=== PATIENT | female | born 1940 | race Caucasian/White ===

== ENCOUNTER 2025-02-07 06:32 | Day surgery (SDC) | payer MEDICARE ==
[2025-02-05 09:39] VITALS: BMI 20.5
[~2025-02-07 06:32] MED LIST: LACTATED RINGERS 1,000 ML IV SCH; LIDOCAINE 1% (10MG/ML) FOR IV START INTRADERMA PRN; MOXIFLOXACIN HCL 0.5% DROPS 3 ML BTL OP PRN; TETRACAINE 0.5% OPHTH (PF) DROPS 4 ML BTL OP PRN; TIMOLOL 0.5% OPHTH DROPS 5 ML BTL OP PRN
[2025-02-07] MEDS: IV FLUID CONTINUATION 1,000 ML IV ONE (07:00)
[2025-02-07] MEDS: CYCLOPENTOLATE 1% OPHTH SOLN 2 ML BTL OP PRN (07:08)
[2025-02-07] MEDS: PHENYLEPHRINE 2.5% OPHTH DRP 2ML OP PRN (07:11)
[2025-02-07 07:44] VITALS: TEMP 98.5
[2025-02-07] MEDS ORDERED: MIDAZOLAM 2 MG/2 ML VIAL ONE (08:06)
[2025-02-07] MEDS: EPINEPHrine (PF) 0.3 ML in BALANCED SALT IRRIG SOLN COMB2 500 ML IRRIGATION ONE (08:09)
[2025-02-07] MEDS: TIMOLOL 0.5% OPHTH SOLN (PF) 0.2 ML DROPERETTE LEFT EYE ONE (08:28)
[2025-02-07] MEDS: LIDOCAINE 1% (PF) 10MG/ML VIAL MISCELLANE ONE (08:28)
[2025-02-07] MEDS: DUOVISC KIT (GREEN BOX) INTRAOCULA ONE (08:28)
[2025-02-07] MEDS: MOXIFLOXACIN HCL 0.5% DROPS 3 ML BTL LEFT EAR ONE (08:29)
--- NOTE | 2025-02-07 08:52 | P.OP ---
Date of Procedure: 02/07/25 Preoperative Diagnosis: NS & cS & PSC Postoperative Diagnosis: same Procedure(s) Performed: PIOL, OS Implants: DCB00 20.00 Anesthesia: MAC Surgeon: Paramjit Ledezma Pathology: none sent Condition: stable Disposition: same day Indications for Procedure: blurry vision Operative Findings: no complications
[2025-02-07] MEDS: hydrALAZINE HCL 20 MG/ML 1 ML VIAL IVP STA (09:22)
[2025-02-07 09:58] VITALS: BP 130/62; PULSE 63; RESP 17
--- NOTE | 2025-02-07 20:55 | OP ---
OPERATIVE REPORT DATE OF SERVICE : 02/07/2025 PROCEDURE: Phacoemulsification of cataract and intraocular lens implant of the left eye. PREOPERATIVE DIAGNOSES: 1. Nuclear sclerosis. 2. Cortical sclerosis. 3. Posterior subcapsular cataract with brunescent color to the nucleus of the lens. POSTOPERATIVE DIAGNOSES: 1. Nuclear sclerosis. 2. Cortical sclerosis. 3. Posterior subcapsular cataract with brunescent color to the nucleus of the lens. ANESTHESIA: Topical. ESTIMATED BLOOD LOSS: None. SPECIMEN TAKEN: None. NARRATIVE: After obtaining the appropriate consent, the patient was brought to the operating room where she was placed under cardiac monitoring and prepped and draped in the usual sterile manner. She was approached from her left temporal side and at the 5 o'clock position, an MVR blade was used to create a paracentesis port. Through this opening, 1% Xylocaine MPF 50:50 mix with balanced salt solution was injected into the anterior chamber. This was followed by Trypan blue, which was allowed to dwell in the eye for 90 seconds. This was irrigated away with balanced salt solution, and the anterior chamber was then stabilized using Viscoat. At the 3 o'clock position, a 2.5 mm keratome was used to create a self-sealing corneal flap incision. Through this opening, a cystotome was introduced to begin a continuous tear capsulorrhexis which was then completed using the Utrata forceps. Hydrodissection and hydrodelineation of the lens were accomplished with balanced salt solution. This was followed by irrigation and aspiration using a phaco chop, which was accomplished in 1 minute 5 seconds at 20.6% power. Additional Xylocaine MPF was then instilled into the anterior chamber and this was followed by careful irrigation and aspiration of all remaining cortical material from the equator of the bag as well as careful polishing of the posterior capsule in the capsule vacuum mode. Some posterior capsular cataract was felt to be too tenacious and without risking the capsule was left in place to be addressed at a different time. Provisc was then used to stabilize the capsular bag and a Parveen and Parveen model DCB00, 20.0 diopter posterior chamber intraocular lens was then inserted into the capsular bag without difficulty. All remaining viscoelastic was removed from in and around the intraocular lens as well as the anterior chamber. The eye was brought to normal intraocular pressure through the paracentesis port, and the wounds were confirmed watertight. She then received 2 drops of 0.5% timolol followed by 2 drops of 0.5% moxifloxacin. She was then lightly patched and shielded in the usual manner. There were no complications from the procedure. She tolerated the procedure well and was returned to outpatient recovery in good condition. BEAR / LOU: [id number] /
== END 2025-02-07 10:07 | disposition home or self-care (01) ==
LOC: OR 06:32 → EDBD 07:30 → OR 10:07
PROVIDERS: ATTEND Ophthalmology
DX: H25.12 Age-related nuclear cataract, left eye (principal); I48.91 Unspecified atrial fibrillation
CPT/HCPCS: 66984; V2632; J2250; J0360; J0171; J2003

== ENCOUNTER 2025-02-28 09:36 | Day surgery (SDC) | payer MEDICARE ==
[~2025-02-28 09:36] MED LIST changes: -LACTATED RINGERS 1,000 ML IV SCH; -LIDOCAINE 1% (10MG/ML) FOR IV START INTRADERMA PRN; -MOXIFLOXACIN HCL 0.5% DROPS 3 ML BTL OP PRN; -TIMOLOL 0.5% OPHTH DROPS 5 ML BTL OP PRN
[2025-02-28 10:11] VITALS: TEMP 97
[2025-02-28] MEDS: LACTATED RINGERS 1,000 ML IV ONE ×2 (10:11→11:45)
[2025-02-28] MEDS: CYCLOPENTOLATE 1% OPHTH SOLN 2 ML BTL OP PRN (10:15)
[2025-02-28] MEDS: PHENYLEPHRINE 2.5% OPHTH DRP 2ML OP PRN (10:18)
[2025-02-28] MEDS: LACTATED RINGERS 1,000 ML IV SCH (10:18)
[2025-02-28] MEDS ORDERED: fentaNYL (PF) 50 MCG/ML 2 ML AMP ONE (11:44)
[2025-02-28] MEDS ORDERED: MIDAZOLAM 2 MG/2 ML VIAL ONE (11:44)
[2025-02-28] MEDS: BALANCED SALT IRRIG SOLN COMB2 15 ML IRRIG.SOLN INTRAOCULA ONE (11:59)
[2025-02-28] MEDS: LIDOCAINE 1% (PF) 10MG/ML VIAL SQ ONE (12:00)
[2025-02-28] MEDS: EPINEPHrine (PF) 1 MG/ML AMP SQ ONE (12:00)
[2025-02-28] MEDS: DUOVISC KIT (GREEN BOX) INTRAOCULA ONE (12:00)
[2025-02-28] MEDS: EPINEPHrine (PF) 0.3 ML in BALANCED SALT IRRIG SOLN COMB2 500 ML IRRIGATION ONE (12:01)
[2025-02-28] MEDS: MOXIFLOXACIN HCL 0.5% DROPS 3 ML BTL OP PRN (12:01)
[2025-02-28] MEDS: TIMOLOL 0.5% OPHTH DROPS 5 ML BTL OP PRN (12:01)
--- NOTE | 2025-02-28 12:17 | P.OP ---
Date of Procedure: 02/28/25 Preoperative Diagnosis: NS & CS & PAS Postoperative Diagnosis: same Procedure(s) Performed: PIOL< OD Implants: DCB00 20.00 Anesthesia: MAC Surgeon: Paramjit Ledezma Pathology: none sent Condition: stable Disposition: same day Indications for Procedure: blurry vision Operative Findings: no complications
[2025-02-28 12:31] VITALS: RESP 18
[2025-02-28 12:37] VITALS: BP 164/82; PULSE 76
--- NOTE | 2025-02-28 23:55 | OP ---
OPERATIVE REPORT DATE OF SERVICE : 02/28/2025 PREOPERATIVE DIAGNOSES: Nuclear sclerosis, cortical sclerosis, posterior subcapsular cataract. POSTOPERATIVE DIAGNOSES: Nuclear sclerosis, cortical sclerosis, posterior subcapsular cataract. OPERATION: Phacoemulsification of cataract and intraocular lens implant of the right eye. ESTIMATED BLOOD LOSS: Zero. SPECIMEN TAKEN: None. NARRATIVE: After obtaining the appropriate consent, the patient was brought to the operating room where the patient was placed under cardiac monitoring and prepped and draped in the usual sterile manner. At the 11 o'clock position, a 15-degree super sharp blade was used to create a paracentesis followed by instillation of 1% Xylocaine MPF 50:50 mix with BSS into the anterior chamber. This was followed by DuoVisc viscoelastic to stabilize the anterior chamber. At the 9 o'clock position a self-sealing corneal flap incision was created using 2.8 mm jennifer keratome. A cystotome was used to initiate a continuous tear capsulorrhexis which was completed with the Utrata forceps. A Binkhorst cannula was used to hydrodissect the lens nucleus followed by hydrodelineation. Phacoemulsification of the lens was performed utilizing phacochop in 34.35 seconds at 15.9% power. The remaining cortical material was removed using the irrigation aspiration mode followed by additional 1% Xylocaine MPF into the anterior chamber followed by viscoelastic to stabilize the capsular bag. A Parveen and Parveen DCB00 20.0 diopters posterior chamber lens was placed into the capsular bag without difficulty. The remaining viscoelastic material was removed from the anterior chamber with the irrigation/aspiration. Balanced salt solution was used to normalize the intraocular pressure. The incision was checked for watertight integrity. The patient then received 2 drops of 0.5% timolol followed by 2 drops Vigamox, was lightly patched and shielded in the usual manner. There were no complications from the procedure. The patient tolerated the procedure well and was returned to recovery in good condition. MMODL / IJN: [id number] /
== END 2025-02-28 13:09 | disposition home or self-care (01) ==
LOC: OR 09:36
PROVIDERS: ATTEND Ophthalmology
DX: H25.11 Age-related nuclear cataract, right eye (principal); N99.85 Post endometrial ablation syndrome; I48.91 Unspecified atrial fibrillation
CPT/HCPCS: 66984; V2632; J2250; J0171; J3010; J2003